=== PATIENT | male | born 1990 | race Caucasian/White ===

== ENCOUNTER → 2020-05-14 | Outpatient (CLI) | payer OTHER ==
[~2020-05-14] VITALS: Ht 172.7 cm; Wt 109.1 kg
[~2020-05-14] MED LIST: CATHETER FLUSH 10 ML SYR IV PRN; GADOBUTROL 7.5 MMOL/7.5 ML (GADAVIST) VIAL IV ONE; IOHEXOL 300 MG/ML 50 ML (OMNIPAQUE 300) VIAL IV ONE
--- NOTE | 2020-05-14 15:09 | Diagnostic Imaging Report ---
INDICATION: Shoulder injury and pain. FINDINGS: The patient was brought to the procedure room and placed on the table in the supine position. The skin of the left shoulder was prepped and draped in the usual sterile fashion. A small amount of 1% lidocaine was utilized for local anesthesia. A 22-gauge needle was advanced and placed with its tip at the rotator interval. A 15 mL solution of iodinated contrast, normal saline, and gadolinium was injected under fluoroscopic observation. The needle was withdrawn and hemostasis was obtained. 31 seconds fluoroscopic time was utilized. The patient tolerated the procedure well and was sent to MRI in satisfactory condition. IMPRESSION: Successful left shoulder injection of a gadolinium contrast solution using fluoroscopy. Dictated by: Dictated on workstation # [id number]
--- NOTE | 2020-05-14 18:41 | Diagnostic Imaging Report ---
EXAMINATION: Magnetic resonance imaging of the left shoulder with intra-articular contrast. DATE: May 14, 2020. COMPARISON: Left shoulder arthrogram May 14, 2020. HISTORY: 29-year-old male, left shoulder injury in 2017 with persistent left shoulder pain. TECHNIQUE: Magnetic Resonance Imaging sequences were performed of the shoulder following the intra-articular administration of contrast. FINDINGS: ROTATOR CUFF, LIGAMENTS, TENDONS, AND MUSCLES: The supraspinatus, infraspinatus, teres minor, and subscapularis tendons and muscles are intact. There is normal rotator cuff muscle bulk and signal. LONG HEAD OF BICEPS: The biceps labral attachment and long head of the biceps tendon is intact. The long head of the biceps tendon is normally positioned within the bicipital groove. GLENOHUMERAL JOINT: The humeral head is posteriorly subluxed. There is mild irregularity of the posterior labrum. There is no definite discrete contrast filled labral tear. There is no identified paralabral cyst. There is no abnormal contrast extravasation below the level of the axillary pouch. The articular cartilage is grossly intact. There is no identified intra-articular body or prominent synovitis. ACROMIOCLAVICULAR JOINT: The acromioclavicular joint is normally aligned. The coracoclavicular and coracoacromial ligaments are intact. There are no degenerative changes of the acromioclavicular joint. BONE: The bones all have normal configuration. The bone marrow signal is within normal limits. Specifically, negative for fracture, osteomyelitis, osteonecrosis, or marrow replacing process. BURSAE AND SOFT TISSUES: There are several mildly prominent axillary lymph nodes of uncertain exact etiology or significance. IMPRESSION: 1. The humeral head is posteriorly subluxed. There is mild irregularity of the posterior labrum without a definite contrast-filled labral tear or paralabral cyst. 2. Intact rotator cuff and proximal long head of biceps tendon. 3. Intact acromioclavicular joint. 4. No acute fracture or bone contusion. 5. Several mildly prominent axillary lymph nodes of uncertain exact etiology or significance. Dictated by: Dictated on workstation # [id number]
== END ==
LOC: RAD 14:08
PROVIDERS: ATTEND Orthopaedic Surgery
DX: M25.312 Other instability, left shoulder (principal); S49.92XA Unspecified injury of left shoulder and upper arm, initial encounter
CPT/HCPCS: 23350; 73040; 73222